=== PATIENT | female | born 1925 | race African-American/Black ===

== ENCOUNTER → 2016-08-08 | Outpatient (CLI) | payer OTHER, BC ==
[~2016-08-08] VITALS: Ht 157.5 cm; Wt 52.6 kg
[~2016-08-08] MED LIST: ACTONEL150 MG PO; ACTONEL30 MG; ADULT LOW DOSE81 MG PO; ALBUTEROL2.5 MG/32 IH; AMARYL1 MG PO; APAP/CODEINE ELI5 M1 PO; ASPIRIN EC81 M1 PO; ATENOLOL 25 MG25 M1 PO; B1; B12INJ IM; BENICAR40 MG PO; BETIMOL 0.0.25 %/11 OP; BISACODYL SUPP10 MG RE; CALCIUM 500 +1 EAC5 PO; CALCIUM500 M1 PO; CARBIDOPA-LEVO1 EAC9 PO; CIPROFLOXACIN500 M1 PO; COLACE100 MG PO; DARVOCET-N 1001 EAC1; DIPHENHIST25 M2 PO; FENTANYL PA50 MCG/HR TP; FOLBIC RF TABL1 EACH; FOLIC ACID0.4 MG; GABAPENTIN 100100 MG PO; HYDROCODON-ACE1 EAC1 PO; HYDROCODON-ACE1 EAC5 PO; HYDROCODON-ACE1 EAC8 PO; HYDROCODON-ACE1 EACH PO; HYDROCODONE-AP1 EA11 PO; HYDROCODONE-AP1 EAC6 PO; HYDROCODONE-APA1 TA1 PO; IMDUR 30 MG TAB30 M1 PO; K-DUR10 ME1 PO; K-DUR10 MEQ PO; LACTULOSE20 GM/30 M PO; LASIX 20 MG TAB20 MG PO; LEVOTHYROXIN0.112 M1 PO; LEVOTHYROXIN0.125 M1 PO; LEVOTHYROXIN0.125 M2; LIDODERM 5%1 PATC1 TOP; LINZESS290 MCG PO; LIPITOR10 MG PO; LORTAB 7.5/5001 TA3 PO; LOSARTAN POTAS100 MG PO; MELOXICAM7.5 MG PO; METHADONE HCL 110 M1 PO; METHADONE HCL5 MG PO; MIRALAX255 GM PO; MOBIC7.5 MG PO; NEURONTIN 300300 M1 PO; NEURONTIN 300M300 M2 PO; NITROGLYCERIN0.4 MG SUBLING; NORTRIPTYLINE H25 M3 PO; OS-CAL 500+D C1 EACH PO; OXYCODON-ACETA1 EAC1 PO; OXYCODONE-ACET1 EAC2 PO; PAMELOR10 MG PO; PAMELOR25 MG PO; PAXIL10 MG PO; PERCOCET 10-321 EACH PO; PRAVASTATIN SOD20 MG PO; PREDNISONE 20 M20 MG PO; PRILOSEC 20 MG20 MG PO; PROTONIX 20 MG20 M1 PO; PROTONIX40 M1 PO; REGLAN 10 MG TA10 MG PO; REQUIP 1 MG TABL1 M1 PO; ROBAXIN 750 MG750 M1 PO; SINEMET 25-1001 EAC1 PO; SKELAXIN 800 M800 M1 PO; SYMBICORT160 MCG/4. INH; TIMOLOL MA0.25 %/5 M OP; TIZANIDINE HCL4 MG PO; TRAMADOL 50 MG50 MG PO; TUMS PO; TYLENOL325 MG PO; ULTRAM 50MG TAB50 MG PO; VISTARIL 25 MG25 M1 PO; VITAMIN B1 PO; VITAMIN D1000 UNI1 PO; VITAMIN D1000 UNIT PO; VITAMIN D2000 UNIT PO; ZPAK PO; [UNRECOGNIZED DRUG - REMARK]
--- NOTE | ~2016-08-08 | HPC ---
[facility] [address] [place] [address] PAIN MANAGEMENT CONSULTATION Name: LEONA BANUELOS Mayco [facility] [id number] Admission: 08/08/16 Attend Phys: Jignesh James MD Discharge: Date of : [birth year] Report #: [id number] THIS REPORT FOR: //name// CC: Kvng Chandler DO Jignesh James DATE OF SERVICE: 08/08/2016 Followup visit for chronic low back pain with radiculopathy status post lumbar surgery, post-laminectomy syndrome. The patient is here today with her daughter. She is having ongoing pain. We provided with epidural injections at the regular intervals around the year. Unfortunately, she has had an injection over the last 6 weeks and I have told her that I will not provide her injection today. We talked about other ways we might manage her neuropathic pain. She describes her pain as an 8/10 with movement and standing. It is tingling and aching and radiates from her back to her hips bilaterally and down into her legs. 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 She has always reported favorable response to injections. We will try and get her back next month if necessary for an injection. In the meantime, I have suggested a trial of very low dose gabapentin. She is going to start with 1 tablet morning, noon and evening and then 2 tablets at bedtime. I am taking her off of nortriptyline due to age, potential side effects from the anticholinergic drug. One of the side effects we need to watch out for is peripheral edema, which can develop with gabapentin as well as hypertension. She does not have issues today, so she will be cautious at home and keep a monitor on both of those issues. PHYSICAL EXAMINATION: Natalia 89-year-old patient I have known for years. Pleasant, alert and oriented, does not show any signs of overmedication. Her blood pressure 145/76, heart rate 67. BMI is 21.2. She has great difficulty moving from sitting to standing position, ambulating without assistance. She is a fall risk. Mild edema is noted bilaterally in lower extremities. IMPRESSION: 1. Post-laminectomy syndrome with radiculopathy. 2. Chronic osteoarthritis particularly involving the right shoulder. 3. Management of high risk medications. PLAN: Medications were provided for her along with risks, benefits, analysis, [place] [address] PAIN MANAGEMENT CONSULTATION Name: LEONA BANUELOS Room #: REG C[facility] Sherman#: [id number] Admission: 08/08/16 Attend Phys: Jignesh James MD Discharge: Date of : 02/28/[birth year] Report #: [id number] discussion and she plans to return to the pain clinic possibly next month for another epidural injection. By: [id number] Jignesh James MD /nt
[2016-08-08 13:53] VITALS: BP 145/76
== END | disposition home or self-care (01) ==
LOC: PAIN 06:51
DX: M96.1 Postlaminectomy syndrome, not elsewhere classified (principal); M54.10 Radiculopathy, site unspecified; M19.011 Primary osteoarthritis, right shoulder; I10 Essential (primary) hypertension

== ENCOUNTER → 2016-09-05 | Outpatient (CLI) | payer OTHER, BC ==
[~2016-09-05] VITALS: Ht 157.5 cm; Wt 54.0 kg
--- NOTE | ~2016-09-05 | HPC ---
[facility] [address] [address] PAIN MANAGEMENT CONSULTATION Name: LEONA BANUELOS Mayco Room #: REG [facility].#: [id number] Admission: 09/05/16 Attend Phys: Jignesh James MD Discharge: Date of : 02/28/[birth year] Report #: [id number] THIS REPORT FOR: //name// CC: Kvng James DATE OF SERVICE: 09/05/2016 REASON FOR VISIT: Followup visit for low back pain with radiculopathy and severe osteoarthritis of bilateral shoulders. HISTORY OF PRESENT ILLNESS: The patient is in clinic today for 15-minute consultation with her daughter. She has primarily pain in her right shoulder today but also chronic back pain and pain into the hip. We decided today that we forego a caudal epidural injection. I have agreed to change her medication from 7.5 to 10 mg q.i.d. We discontinued gabapentin today due to leg swelling, which I think is a cause. PHYSICAL EXAMINATION: VITAL SIGNS: Her blood pressure is 130/67, heart rate 74 and respirations 18. EXTREMITIES: She has a very limited use of the right upper extremity due to severe osteoarthritis with crepitus and tenderness. She has difficulty with all movements most definitely with abduction and internal and external rotation. IMPRESSION: 1. Post-laminectomy syndrome with radiculopathy. 2. Chronic osteoarthritis, right shoulder. 3. Management of high-risk medication. PLAN: 1. Medications were provided for 3 months. 2. Right shoulder injection. PROCEDURE: Skin was prepped with ChloraPrep. Skin was anesthetized with 25-gauge needle gently advanced into the shoulder joint using the posterior approach. I then injected a total of 60 mL of 0.5% lidocaine mixed with 40 mg of triamcinolone. She tolerated the procedure well and was observed for 45 minutes and discharged. [facility] [address] [place] [address] PAIN MANAGEMENT CONSULTATION Name: LEONA BANUELOS [facility] [id number] Admission: 09/05/16 Attend Phys: Jignesh James MD Discharge: Date of : 02/28/[birth year] Report #: [id number] Follow up as needed. By: 1911 [id number] Jignesh James MD /nt
[2016-09-05 10:14] VITALS: BP 144/71
== END | disposition home or self-care (01) ==
LOC: PAIN 07:02
DX: M19.011 Primary osteoarthritis, right shoulder (principal); G89.29 Other chronic pain; M96.1 Postlaminectomy syndrome, not elsewhere classified

== ENCOUNTER → 2016-10-28 | Outpatient (CLI) | payer OTHER, BC ==
[~2016-10-28] VITALS: Ht 157.5 cm; Wt 51.8 kg
[~2016-10-28] MED LIST changes: +GABAPENTIN100 MG PO
--- NOTE | ~2016-10-28 | HPC ---
[facility] [place] [address] PAIN MANAGEMENT CONSULTATION Name: LEONA BANUELOS Room #: REG [facility] Whit#: [id number] Admission: 10/28/16 Attend Phys: Evert Silveira DO Discharge: Date of : 02/28/27 Report #: [id number] THIS REPORT FOR: //name// CC: Kvgn Silveira The patient is a very pleasant 89-year-old female being treated for multiple pain concerns. She is status post lumbar decompressive laminectomy, has osteoarthritis in the right shoulder, neuropathic pain in bilateral lower extremities, requiring complex medication management. Back in August, gabapentin was discontinued secondary to lower extremity swelling. Unfortunately since that time, she has had ongoing increasing neuropathic pain in the lower extremities, burning dysesthesia in her legs with even light contact. Swelling is actually fairly nominal, though the patient notes continues in the afternoon and notes that there was actually no change in the subjective swelling (again noted in the late afternoon) with discontinuation of gabapentin. Steroid injection of the right shoulder at last visit on 09/05/2016, had afforded good relief, though she still has limited range of motion of that shoulder. We did talk today at length about range of motion. She has been in PT for this, but unfortunately really stopped doing the exercises that she was instructed to continue from the therapist. She is complaining today mostly of low back pain with radicular pattern. She has had good relief with the caudal epidural injections in the past. PHYSICAL EXAMINATION: Shows a pleasant 89-year-old female. Vital signs are noted on the EMR. Cervical range of motion is good. Right shoulder range of motion remains limited, still a little tender over the shoulder, though symptoms do seem to be improved. I do not detect any lower extremity edema, positive straight leg raise bilaterally. Again, light touch allodynia is noted from about the knee down, the right greater than left leg. ASSESSMENT: 1. Neuropathic pain, lower extremities; osteoarthritis of the right shoulder, requiring complex medication management. 2. Acute exacerbation of lumbar radiculopathy, status post decompressive laminectomy. RECOMMENDATION: 1. Continue hydrocodone 10/325 up to 4 a day, I have taken the liberty of writing for 2 months of current medication. 2. We have elected to resume gabapentin 100 mg t.i.d. Follow up in 2 months to evaluate efficacy, we will look for decrease in the neuropathic pain, light touch allodynia, and hyperpathia as well as to ensure that the swelling is not getting worse. 3. Caudal epidural injection under fluoroscopy. [facility] [address] [place] [address] PAIN MANAGEMENT CONSULTATION Name: BANUELOSLEONA B Room #: REG [facility]#: [id number] Admission: 10/28/16 Attend Phys: Evert Silveira DO Discharge: Date of : 02/28/27 Report #: [id number] PROCEDURE NOTE: After written and informed consent was obtained, the patient was taken to fluoroscopy suite, placed in prone position. After sterile prep and drape, skin wheal was raised. A 22-gauge stylet needle was placed through the sacral hiatus into the caudal epidural space. Negative aspiration was accomplished. 1 mL of Omnipaque was injected, which showed spread within the caudal epidural area, this was followed with 80 mg of triamcinolone plus 4 mL of 1.5% preservative-free Xylocaine. Needle was removed, the area was cleansed, and Band-Aids applied. The patient was monitored for an appropriate period of time, discharged in good and stable condition. <ELECTRONICALLY SIGNED> By: Evert Silveira DO 10/30/16 1246 0904 1035 Evert Silveira DO /nt
[2016-10-28 08:26] VITALS: BP 138/71
== END ==
LOC: PAIN 06:34
DX: M54.16 Radiculopathy, lumbar region (principal); M19.011 Primary osteoarthritis, right shoulder; G57.80 Other specified mononeuropathies of unspecified lower limb; Z98.890 Other specified postprocedural states; G20 Parkinson's disease

== ENCOUNTER → 2016-12-16 | Outpatient (CLI) | payer OTHER, BC ==
[~2016-12-16] VITALS: Ht 160 cm; Wt 51.7 kg
--- NOTE | ~2016-12-16 | HPC ---
[facility] [address] [place] [address] PAIN MANAGEMENT CONSULTATION Name: LEONA BANUELOS Mayco Room #: REG [facility] Whit#: [id number] Admission: 12/16/16 Attend Phys: Evert Sivleira DO Discharge: Date of : 02/28/27 Report #: [id number] THIS REPORT FOR: //name// CC: Kvng Silveira The patient is an 89-year-old female typically seen by Dr. Jignesh James, though I did see her at last visit, 10/28/2016. We did a caudal epidural injection for ongoing radicular pain. This helped, but she still has ongoing right shoulder pain. She prior had a right shoulder joint injection by Dr. Jignesh James on 09/05/2016 and this had afforded good relief at that time, but pain has recurred. Today, she is noting pain in the right neck, shoulder and arm. Primary pain in the shoulder is exacerbated with both active and passive rotation. Concern is that she also has some component of what appears to be some cervical radiculopathy, she does have a positive Lhermitte's and pain radiating on below the shoulder. I did review an old MRI from March 2010, she does have extensive cervical spondylosis with [id number]-[id number] neural foraminal stenosis at multiple levels. She may benefit from cervical epidural injection at next visit, I will defer to Dr. Jignesh James. Today, however, with ongoing pain in his right shoulder and pain with both active and passive rotation, we have elected to proceed with shoulder injection under fluoroscopy today, again follow up with Dr. Jignesh James for cervical radiculopathy and ongoing medication management at next visit. PROCEDURE NOTE: Right shoulder injection under fluoroscopy. PROCEDURE: After written informed consent was obtained, the patient was taken to the fluoroscopy suite and placed in supine position. Skin overlying the right shoulder was cleansed with ChloraPrep. Skin wheal with Xylocaine was raised. A 22-gauge stylet needle was placed to contact the proximal aspect of the right humerus under the AC joint. Negative aspiration was accomplished. 1 mL of Omnipaque was injected, which showed spread within the joints. This was followed with 40 mg triamcinolone plus 2 mL of 0.5% preservative-free bupivacaine. Need was removed. The area was cleansed, Band-Aids applied. The patient monitored for an appropriate period of time, discharged in good and stable condition. Told to use ice the area today, watch for signs of infection. By: 1312 1631 Evert Silveira DO /nt
[2016-12-16 12:44] VITALS: BP 126/78
== END | disposition home or self-care (01) ==
LOC: PAIN 07:19
DX: M25.511 Pain in right shoulder (principal); M54.12 Radiculopathy, cervical region; G89.29 Other chronic pain; G20 Parkinson's disease; Z88.2 Allergy status to sulfonamides; Z88.8 Allergy status to other drugs, medicaments and biological substances; Z79.82 Long term (current) use of aspirin; Z79.899 Other long term (current) drug therapy; Z98.890 Other specified postprocedural states

== ENCOUNTER 2017-01-21 14:55 | Inpatient (IN) | payer OTHER, BC ==
[~2017-01-21] VITALS: Ht 162.6 cm; Wt 48.7 kg
--- NOTE | ~2017-01-21 | EKG ---
[address] [place] [address] ELECTROCARDIOGRAM REPORT Name: LEONA BANUELOS Room #: 170-7 ADM IN M.R.#: [id number] Admission: 01/21/17 Attend Phys: Lex Newton MD Discharge: Date of : [birth year] Report #: [id number] THIS REPORT FOR: //name// [facility] ED Test Date: 2017-01-21 Test Time: 15:07:43 Pat Name: LEONA BANUELOS Department: Room: 170 Gender: F Electric Scoop Operator: [id number] : 1925 Requested By: Ignacio Nunez Order Number: [id number] MD: Segundo Langford Measurements Intervals [place] Rate: 103 P: 76 FL: 135 QRS: 56 QRSD: 93 T: 12 QT: 268 QTc: 351 Interpretive Statements Sinus tachycardia Consider left ventricular hypertrophy Baseline wander in lead(s) V6 Compared to ECG 03/08/2014 12:46:19 Nonspecific change in the ST and T wave segments Electronically Signed On 01-21-2017 17:10:55 CDT by Segundo Langford [email or web address] <ELECTRONICALLY SIGNED> By: Segundo Langford MD, [facility] 01/21/17 1710 1507 1507 Segundo Langford MD, [facility] /EPI
--- NOTE | ~2017-01-21 | HC ---
[facility] [place] [place] [address] CONSULTATION Name: LEONA BANUELOS Mayco Room #: 429-P [facility] IN M.R.#: [id number] Admission: 01/21/17 Attend Phys: Lex Newton MD Discharge: Date of : 02/28/[birth year] Report #: [id number] THIS REPORT FOR: //name// CC: Kvng Newton TYPE OF REPORT: Infectious disease consultation. REASON FOR CONSULTATION: I was asked to evaluate concerning pyelonephritis. HISTORY OF PRESENT ILLNESS: The patient is an 89-year old who was hospitalized on 01/21/2017 with decreased mental status and finding of dysuria with pyuria and E. coli from her urine culture. She also had Gram-negative bacteremia. We are awaiting identification of the gram-negative in her blood. She has had some tenderness to the right flank. She has underlying Parkinson's disease. She does have a history of urinary tract infections in the past. She was treated with ceftriaxone and is tolerating medications well. Her fever has subsided. She is voiding reasonably well. Appetite has improved. ALLERGIES: SULFA, ASPIRIN, CELEBREX, GABAPENTIN, LISINOPRIL and NAPROSYN. MEDICATIONS: As noted on her MAR, now including ceftriaxone. PAST MEDICAL HISTORY: Unchanged from her history and physical, which was reviewed in detail. FAMILY HISTORY: Unchanged from her history and physical, which was reviewed in detail. SOCIAL HISTORY: Unchanged from her history and physical, which was reviewed in detail. REVIEW OF SYSTEMS: Denies any cough or sputum production. She has had no diarrhea. PHYSICAL EXAMINATION: VITAL SIGNS: Afebrile and hemodynamically stable. GENERAL: She was sitting up in her chair. HEENT: Unremarkable. LUNGS: Clear. NECK: Supple. HEART: Regular, without murmur. ABDOMEN: Soft and nontender. Mild right flank tenderness. EXTREMITIES: Unremarkable. LABORATORY STUDIES: Hemoglobin 11 and WBC 14.2. Creatinine 0.7. Urine culture [address] [address] CONSULTATION Name: LEONA BANUELOS Room #: 429-P [facility] IN [facility].#: [id number] Admission: 01/21/17 Attend Phys: Lex Newton MD Discharge: Date of : 02/28/[birth year] Report #: [id number] shows E. coli resistant to ampicillin and Unasyn, otherwise susceptible. Blood culture is positive for gram-negative bacilli yet to be identified. RADIOLOGICAL DATA: Chest x-ray, basilar atelectasis. IMPRESSION: An 89-year old with suspected right pyelonephritis. We will await identification of her blood cultures. She seems to be responding to her antibiotic therapy with ceftriaxone. White count still is elevated, although the patient has improved from her admission. She is scheduled to go to rehabilitation in the near future. RECOMMENDATIONS: Recommend continuing ceftriaxone pending blood culture results. We will check postvoid residual and recheck ultrasound of her kidney. She does have a history of left kidney cyst, 6.5 x 7 cm that was identified in 2013. The patient should be able to transfer to acute rehabilitation tomorrow pending studies. By: [id number] 0658 Ramon Salas MD /nt
--- NOTE | ~2017-01-21 | HC ---
[facility] [place] [place] [address] CONSULTATION Name: BANUELOSLEONA B Room #: 429-P [facility] IN M.R.#: [id number] Admission: 01/21/17 Attend Phys: Lex Newton MD Discharge: Date of : 02/28/[birth year] Report #: [id number] THIS REPORT FOR: //name// CC: Kvng Newton DATE OF SERVICE: 01/22/2017 HISTORY OF PRESENT ILLNESS: The patient is an 89-year-old -[place] Citizen female who was admitted with mental status changes, sleepiness, confusion. She was diagnosed with an acute encephalopathy secondary to sepsis. She was noted to have a urinary tract infection and acute renal insufficiency. She is on IV antibiotics. We are seeing her in rehabilitation medicine consultation. She is on IV fluids with improvement in her renal insufficiency. She was noted to have hypokalemia and hypomagnesemia as well, which are being replaced. PAST MEDICAL HISTORY: Does includes history of Parkinson's disease, hypertension, GERD, diabetes mellitus, back surgery x 2, right knee surgery x 2, hysterectomy, and total thyroidectomy. PAST SURGICAL HISTORY: As noted above. MEDICATIONS: Please see the full medication listing. ALLERGIES: ASPIRIN, CELEBREX, GABAPENTIN, LISINOPRIL, NAPROXEN, AND SULFA. HABITS: Former tobacco user, quit greater than a year ago. No history of alcohol abuse. FAMILY HISTORY: Noncontributory. REVIEW OF SYSTEMS: No current complaints of chest pain, shortness of breath or abdominal discomfort. No focal extremity pain complaints. She has some stiffness with her Parkinson's disease, which the daughter notes. SOCIAL HISTORY: The patient lives with her daughter in a duplex. They have chair lifts which are electric. She was premorbidly able to walk a short distance using a walker, but the daughter would follow with the wheelchair. The patient needed min assist for dressing. There is someone typically there to assist 24 hours 7 days a week. There also is a bath-aid that comes once a week. PHYSICAL EXAMINATION: GENERAL: Pleasant, small statured 89-year-old -[place] Citizen female in no obvious distress. She is pleasant, could tell me she was in the hospital, but did not know which one. She was incorrect regarding the month. The daughter notes that typically [address] [address] CONSULTATION Name: BANUELOSLEONA B Room #: 429-P [facility] IN .R.#: [id number] Admission: 01/21/17 Attend Phys: Lex Newton MD Discharge: Date of : 02/28/[birth year] Report #: [id number] she would have got those answers right. VITAL SIGNS: Temperature 99.4, pulse 93, respirations 20, blood pressure 126/89. HEENT: Facies appeared symmetric. EXTREMITIES: She does have functional range of motion of the upper extremities with some rigidity and cogwheeling wrists and elbows. In her lower extremities, there is no focal calf swelling; some rigidity is noted. Functional range of motion strength is probably grade 3-3+/5. DTRs are trace to 1. There is no distal lower extremity edema. Negative Mejía's. Negative Luba's. Functionally, she is max assist with sit to stand. Bed mobility is mod assist. ASSESSMENT: An 89-year-old -[place] Citizen female with the following problem list: 1. Metabolic encephalopathy. 2. Parkinson's disease. 3. Sepsis. 4. Acute renal insufficiency. 5. Urinary tract infection. 6. Diabetes mellitus. 7. Gastroesophageal reflux disease. PLAN: The patient is a candidate for an acute inpatient rehabilitation stay. From a preadmission screening perspective: 1. Prior level of function is well delineated above. 2. Expect level of improvement would be for the patient to become modified independent with transfers, mobility and ADLs as well as cognition, so that she can return back to the home setting. Would anticipate a fairly short length of stay of maybe a week depending upon her progress. 3. Evaluation of the patient's risk for clinical complications. She does have the multiple medical comorbidities as noted above. 4. Condition that caused the need for rehabilitation would be the acute metabolic encephalopathy. She also has the premorbid Parkinson's disease. 5. Treatments needed would include PT, OT and speech, 1 hour per day each, five days a week throughout the duration of the acute inpatient rehabilitation stay. 6. Anticipated discharge destination would be back home with the daughter's assistance and the caregiver and other family help. 7. Anticipated post-discharge treatment would include home healthcare post-discharge. 8. The patient meets diagnostic criteria for an acute in-hospital inpatient rehabilitation stay. She meets medical necessity criteria and the financial management consultant physicians could continue to follow regarding her medical issues while she is on the rehab contreras. She does appear to have the tolerance for an acute [facility] [address] [place] [address] CONSULTATION Name: LEONA BANUELOS Room #: 429-P [facility] IN M.R.#: [id number] Admission: 01/21/17 Attend Phys: Lex Newton MD Discharge: Date of : 02/28/[birth year] Report #: [id number] rehabilitation level and has appropriate discharge goals back to the home setting. By: [id number] [id number] Kvng Estrada MD /
[2017-01-21 14:56] VITALS: BP 109/54
[2017-01-21 15:41] LABS: HEMATOCRIT 34.8 % (37.0-47.0); HEMOGLOBIN 11.3 gm/dL (12.0-15.0); MCH 26.9 pg (26.0-34.0); MCHC 32.5 g/dL (28.0-37.0); MCV 82.9 fL (80.0-100.0); PLATELET COUNT 193 thou/uL (150-400); RDW 13.7 % (10.5-14.5); WBC 18.8 thou/uL (4.0-11.0)
[2017-01-21 15:42] LABS: MANUAL DIFF YES
[2017-01-21 15:49] LABS: ANION GAP 8 mmol/L (7-16); BUN 17 mg/dL (7-18); CALCIUM 10.2 mg/dL (8.5-10.1); CHLORIDE 99 mmol/L (98-107); CO2 31 mmol/L (21-32); CREATININE 1.2 mg/dL (0.6-1.0); GLUCOSE 135 mg/dL (74-106); SODIUM 138 mmol/L (136-145)
[2017-01-21 15:57] LABS: ALBUMIN 3.1 g/dL (3.4-5.0); ALKALINE PHOSPHATASE 51 U/L (46-116); DIRECT BILIRUBIN 0.1 mg/dL (<0.1-0.3); SGOT 19 U/L (15-37); SGPT 9 U/L (30-65); TOTAL BILIRUBIN 0.6 mg/dL (<0.1-1.0); TOTAL PROTEIN 7.1 g/dL (6.4-8.2); TROPONIN-I < 0.04 ng/mL (<0.04-0.07)
[2017-01-21 15:59] LABS: URINE BILIRUBIN NEGATIVE (Negative); URINE BLOOD 3+ (Negative); URINE COLOR YELLOW; URINE GLUCOSE-RANDOM* NEGATIVE (Negative); URINE KETONES NEGATIVE (Negative); URINE NITRITE POSITIVE (Negative); URINE PROTEIN (DIPSTICK) 1+ (Negative); URINE SPECIFIC GRAVITY 1.015 (1.003-1.035); URINE UROBILINOGEN 0.2 E.U./dl (0.2-1.0)
[2017-01-21 16:03] LABS: SQUAMOUS 0-3 Few /LPF (0-3); URINE RBC >20 Many /HPF (0-2); URINE WBC >25 Many /HPF (0-5)
[2017-01-21 16:04] LABS: BACTERIA >30 Many /HPF (None Seen); CASTS None Seen /LPF (None Seen); CRYSTALS None Seen /LPF (None Seen)
[2017-01-21 16:15] LABS: ABSOLUTE NEUTROPHILS 16.2 thou/uL (1.4-8.2); PLATELET ESTIMATE NORMAL; TOTAL CELL COUNT 100
[2017-01-21 17:14] VITALS: BP 109/49
[2017-01-21 17:41] VITALS: BP 98/57
[2017-01-21 18:07] VITALS: BP 121/57
[2017-01-21 20:00] VITALS: BP 112/38
[2017-01-22 06:00] VITALS: BP 132/68
[2017-01-22 06:13] LABS: HEMATOCRIT 33.4 % (37.0-47.0); HEMOGLOBIN 10.7 gm/dL (12.0-15.0); MCH 26.6 pg (26.0-34.0); MCV 83.1 fL (80.0-100.0); RBC 4.01 mil/uL (4.20-5.00); RDW 13.9 % (10.5-14.5); WBC 15.6 thou/uL (4.0-11.0)
[2017-01-22 06:29] LABS: CALCIUM 9.3 mg/dL (8.5-10.1); CREATININE 1.2 mg/dL (0.6-1.0); POTASSIUM 3.2 mmol/L (3.5-5.1)
[2017-01-22 07:31] VITALS: BP 126/89
[2017-01-22 07:32] VITALS: BP 126/89
[2017-01-22 15:43] VITALS: BP 105/62
[2017-01-22 19:35] VITALS: BP 179/94
[2017-01-23 03:55] VITALS: BP 129/85
[2017-01-23 08:08] LABS: CALCIUM 8.9 mg/dL (8.5-10.1); CREATININE 0.7 mg/dL (0.6-1.0); POTASSIUM 3.6 mmol/L (3.5-5.1)
[2017-01-23 09:02] LABS: HEMATOCRIT 33.7 % (37.0-47.0); MCH 27.1 pg (26.0-34.0); MCHC 32.6 g/dL (28.0-37.0); MCV 83.1 fL (80.0-100.0); RBC 4.06 mil/uL (4.20-5.00); RDW 14.6 % (10.5-14.5); WBC 14.2 thou/uL (4.0-11.0)
[2017-01-23 09:22] VITALS: BP 160/81
[2017-01-23 15:07] VITALS: BP 134/66
[2017-01-23 15:23] VITALS: BP 134/66
[2017-01-23 20:00] VITALS: BP 125/82
[2017-01-24 05:30] VITALS: BP 133/82
[2017-01-24 06:31] LABS: CALCIUM 8.6 mg/dL (8.5-10.1); CREATININE 0.8 mg/dL (0.6-1.0); MAGNESIUM 1.8 mg/dL (1.8-2.4); POTASSIUM 3.4 mmol/L (3.5-5.1)
[2017-01-24 07:55] VITALS: BP 108/59
[2017-01-24 08:13] LABS: HEMATOCRIT 30.4 % (37.0-47.0); HEMOGLOBIN 9.9 gm/dL (12.0-15.0); MCH 27.2 pg (26.0-34.0); MCHC 32.7 g/dL (28.0-37.0); RBC 3.66 mil/uL (4.20-5.00); RDW 14.6 % (10.5-14.5); WBC 7.7 thou/uL (4.0-11.0)
[2017-01-24 08:45] VITALS: BP 108/59
[2017-01-24] MEDS ORDERED: AMOXIL 875 MG875 M1 PO (14:52)
== END 2017-01-24 15:26 | DRG 871 ==
LOC: ER 14:55 → 4E 16:47 → EROBS 16:47 → 4E 17:53 → ENTRNSPT 01-24 15:04 → EDTRNSPTSTS 01-24 15:06 → 4E 01-24 15:26
PROVIDERS: Internal Medicine; Nurse Practitioner; Nurse Practitioner Acute Care
DX: A41.9 Sepsis, unspecified organism (principal); G93.41 Metabolic encephalopathy; N17.9 Acute kidney failure, unspecified; E44.0 Moderate protein-calorie malnutrition; N12 Tubulo-interstitial nephritis, not specified as acute or chronic; Z68.1 Body mass index [BMI] 19.9 or less, adult; E89.0 Postprocedural hypothyroidism; I10 Essential (primary) hypertension; E11.9 Type 2 diabetes mellitus without complications; K21.9 Gastro-esophageal reflux disease without esophagitis; M19.90 Unspecified osteoarthritis, unspecified site; G20 Parkinson's disease; E87.6 Hypokalemia; E83.42 Hypomagnesemia; F02.80 Dementia in other diseases classified elsewhere, unspecified severity, without behavioral disturbance, psychotic disturbance, mood disturbance, and anxiety; E78.5 Hyperlipidemia, unspecified; H40.9 Unspecified glaucoma; B96.20 Unspecified Escherichia coli [E. coli] as the cause of diseases classified elsewhere; Z90.49 Acquired absence of other specified parts of digestive tract; Z90.710 Acquired absence of both cervix and uterus; Z79.899 Other long term (current) drug therapy; Z88.6 Allergy status to analgesic agent; Z88.2 Allergy status to sulfonamides; Z88.8 Allergy status to other drugs, medicaments and biological substances; Z87.891 Personal history of nicotine dependence
CPT/HCPCS: 10183